=== PATIENT | female | born 1995 | race American Indian/Alaskan Native ===

== ENCOUNTER 2016-08-15 10:47 | Outpatient (CLI) | payer OTHER ==
--- NOTE | 2016-08-15 12:39 | Ultrasound Report ---
TRANSABDOMINAL AND TRANSVAGINAL PELVIC ULTRASOUND: 08/15/16 10:47:00 CLINICAL: Amenorrhea. FINDINGS: Transabdominal and transvaginal pelvic ultrasound demonstrated a normal size uterus measuring 7.9 x 4.2 x 5.4 cm. Normal uterine contour and echogenicity except for a single posterior body intramural fibroid measuring 1.7 x 1.4 x 1.5 cm.The endometrium is normal and measures 1.0 mm AP thickness. Normal right ovary with a dominant 1.7 cm follicle. The right ovary measures 3.9 x 2.8 x 2.5cm. Normal left ovary. The left ovary measures 3.3 x 2.1 x 2.7cm. No adnexal mass. No free fluid. Normal urinary bladder. IMPRESSION: 1. A single intramural fibroid in the posterior uterine body. 2. Normal endometrium. 3. Normal ovaries.
--- NOTE | 2016-08-15 12:52 | Ultrasound Report ---
BILATERAL BREAST ULTRASOUND: 08/15/16 10:47:00 CLINICAL: 21-year-old with bilateral breast pain and lumpiness. COMPARISON: None. FINDINGS: Ultrasound of both breasts(including all four quadrants and the retroareolar area of each breast) was performed and demonstrated normal fibroglandular structures. No mass, cyst or shadowing. IMPRESSION: Normal bilateral breast ultrasound. BI-RADS 1 - - Negative RECOMMENDATION: Clinical followup.
== END 2016-08-15 10:48 | disposition home or self-care (01) ==
LOC: SPVWC 10:47
PROVIDERS: ATTEND Family Medicine
DX: D25.1 Intramural leiomyoma of uterus (principal); N64.4 Mastodynia; N63 Unspecified lump in breast
CPT/HCPCS: 76830; 76856

== ENCOUNTER 2021-12-10 12:32 | Emergency (ER) | payer SELFPAY ==
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
[2021-12-10 14:22] VITALS: BP 115/60
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
== END 2021-12-10 14:35 | disposition home or self-care (01) ==
LOC: ED 12:32
DX: M25.511 Pain in right shoulder (principal); M54.2 Cervicalgia; M54.6 Pain in thoracic spine; V87.7XXA Person injured in collision between other specified motor vehicles (traffic), initial encounter; Y93.89 Activity, other specified; Y92.488 Other paved roadways as the place of occurrence of the external cause; Y99.8 Other external cause status
CPT/HCPCS: 99282